=== PATIENT | female | born 1970 | race Caucasian/White ===

== ENCOUNTER → 2016-10-01 | Outpatient (CLI) | payer OTHER ==
[~2016-10-01] MED LIST: ABILIFY DISCMEL10 MG PO; ADDERALL 30 MG30 MG PO; ASPIR 8181 MG PO; ATROVENT HFA14 GM INH; AUGMENTIN 875875 MG PO; CLONAZEPAM 1 MG1 M1 PO; COUMADIN 5 MG TA5 M1 PO; CYCLOBENZAPRINE5 MG PO; DEPAKOTE ER500 M1 PO; DEPAKOTE ER500 MG PO; ENOXAPARIN100 MG/11 SUBQ; FLEXERIL PO; FLONASE 0.05%50 MCG NASAL; GABAPENTIN 100100 MG PO; GLUCOPHAGE500 MG PO; GLUMETZA500 PO; HYDROCODON-ACE1 EAC7 PO; HYDROCODONE-APA1 TA1 PO; IBUPROFEN 600600 M1 PO; IBUPROFEN 800800 M1 PO; KEFLEX500 MG PO; LAMICTAL100 MG PO; LISINOPRIL-HCT1 EAC2 PO; LISINOPRIL30 MG PO; LISINOPRIL40 MG PO; LOXAPINE50 MG PO; MEDROLDOSEPACK PO; MOBIC15 MG PO; MOBIC7.5 M1 PO; NAPROSYN500 MG PO; NEURONTIN 300300 M1 PO; NEURONTIN600 MG; NEURONTIN800 MG PO; NICOTINE TRANSD21 M1 TRANSDERM; NOHOMEMEDICATIONS; NORCO 5-325 TA1 EACH PO; NORFLEX100 MG; PENICILLIN V P500 MG PO; PEPCID40 MG PO; PERCOCET 5-3251 EACH PO; PERCOCET 7.5-31 EACH PO; PREDNISONE 20 M20 MG PO; PROAIR HFA8.5 GM IH; PROMETHAZINE-C120 ML PO; PROTONIX40 MG PO; REQUIP 1 MG TABL1 M1 PO; REQUIP0.5 MG PO; REQUIP3 MG; REQUIP3 MG PO; REQUIP4 MG PO; RITALIN10 MG; SERTRALINE HCL50 MG PO; TEGRETOL XR200 MG PO; TESSALON PERLE100 MG PO; TRAZODONE HCL100 MG PO; TUSSIONEX PENN473 ML PO; VALIUM10 MG PO; VALIUM5 MG PO; VENTOLIN HFA 1818 GM INH; VENTOLIN17 GM INH; WELLBUTRIN SR150 MG; XANAX1 MG PO; XANAX2 MG PO; XARELTO15 MG PO; ZPAK PO
== END ==
LOC: ULTRA 09:43
DX: G54.0 Brachial plexus disorders (principal); R00.2 Palpitations; R25.2 Cramp and spasm

== ENCOUNTER 2016-11-15 14:05 | Emergency (ER) | payer OTHER ==
[~2016-11-15] VITALS: Ht 172.7 cm; Wt 113.4 kg
[2016-11-15] MEDS ORDERED: NORCO 5-325 TA1 EACH PO (16:00)
== END 2016-11-15 16:10 | disposition home or self-care (01) ==
LOC: ER 14:05
DX: M17.11 Unilateral primary osteoarthritis, right knee (principal); M25.461 Effusion, right knee; F17.210 Nicotine dependence, cigarettes, uncomplicated; Z98.890 Other specified postprocedural states; Z86.718 Personal history of other venous thrombosis and embolism

== ENCOUNTER → 2016-11-16 | Outpatient (CLI) | payer OTHER | LOC: MRI 11-10 07:30 | DX: G25.81 Restless legs syndrome (principal); M54.5 Low back pain; R29.898 Other symptoms and signs involving the musculoskeletal system ==

== ENCOUNTER 2016-12-03 09:24 | Emergency (ER) | payer OTHER ==
[~2016-12-03] VITALS: Ht 175.3 cm; Wt 113.4 kg
[2016-12-03] MEDS ORDERED: SYMBICORT80 MCG/4.1 INH (10:04)
[2016-12-03] MEDS ORDERED: PREDNISONE 20 M20 MG PO (10:06)
[2016-12-03] MEDS ORDERED: CYCLOBENZAPRINE5 MG PO (10:06)
[2016-12-03] MEDS ORDERED: NORCO 5-325 TA1 EACH PO (10:08)
== END 2016-12-03 10:13 | disposition home or self-care (01) ==
LOC: ER 09:24
DX: M51.26 Other intervertebral disc displacement, lumbar region (principal); R20.2 Paresthesia of skin; F17.210 Nicotine dependence, cigarettes, uncomplicated; Z86.718 Personal history of other venous thrombosis and embolism; Z86.711 Personal history of pulmonary embolism; Z98.890 Other specified postprocedural states